=== PATIENT | female | born 1965 | race Caucasian/White ===

== ENCOUNTER 2016-05-29 09:23 | Day surgery (SDC) | payer OTHER ==
[~2016-05-29] VITALS: Ht 157.5 cm; Wt 112.4 kg
[~2016-05-29 09:23] MED LIST: BENLYSTA120 MG IV; COUMADIN3 MG PO; ERGOCALCIF50000 UNIT PO; HYDROXYCHLOROQ200 MG PO; LOVENOX100 MG/1 M SC; METFORMIN HCL500 MG PO; PLAQUENIL200 MG PO; SERTRALINE HCL50 MG PO; SYNTHROID137 MCG PO; TOPAMAX25 MG PO; ULTRAM50 MG PO; ZOFRAN ODT4 MG PO
[2016-05-29 10:03] VITALS: BP 119/58
[2016-05-29 10:30] LABS: POINT-OF-CARE METER ID UU14174212
[2016-05-29 10:35] LABS: PROTHROMBIN TIME 10.9 (9.2-11.2)
[2016-05-29 10:45] LABS: INTER. NORMALIZED RATIO 1.1
[2016-05-29 10:58] LABS: AMYLASE 19 IU/L (1-118); DIRECT BILIRUBIN 0.1 mg/dL (0.0-0.3); TOTAL BILIRUBIN 0.5 MG/DL (0.0-1.0)
[2016-05-29 11:04] LABS: ALKALINE PHOSPHATASE 53 IU/L (3-129); LIPASE 20 U/L (1.0-51.0)
[2016-05-29] MEDS ORDERED: DILAUDID2 MG PO (15:47)
[2016-05-29] MEDS ORDERED: COLACE100 MG PO (15:47)
[2016-05-29 17:45] VITALS: BP 128/63
[2016-05-29 18:45] VITALS: BP 129/64
[2016-05-29 20:45] VITALS: BP 128/61
== END 2016-05-29 21:11 | disposition home or self-care (01) ==
LOC: SDC 09:23
PROVIDERS: Surgery
PROC: 0FT44ZZ Resection of Gallbladder, Percutaneous Endoscopic Approach (ICD-10-PCS; principal; 2016-05-29)
DX: K80.10 Calculus of gallbladder with chronic cholecystitis without obstruction (principal); I10 Essential (primary) hypertension; E78.5 Hyperlipidemia, unspecified; R20.0 Anesthesia of skin; M35.00 Sjogren syndrome, unspecified; Z86.711 Personal history of pulmonary embolism; I34.1 Nonrheumatic mitral (valve) prolapse; I35.0 Nonrheumatic aortic (valve) stenosis; R73.01 Impaired fasting glucose
CPT/HCPCS: 80076; 82150; 82948; 83690; 85610; 88304; J0330; J0690; J1100; J1170; J1885; J2250; J2405; J2710; J2765; J3010

== ENCOUNTER 2017-03-26 10:48 | Day surgery (SDC) | payer BC ==
[~2017-03-26] VITALS: Ht 157.5 cm; Wt 111.1 kg
[~2017-03-26 10:48] MED LIST changes: +COLACE100 MG PO; +DILAUDID2 MG PO; +FLEXERIL10 MG PO; +GLUCOPHAGE XR,500 MG PO; -LOVENOX100 MG/1 M SC; +LOVENOX30 MG/0.3 SC; -METFORMIN HCL500 MG PO; +NEURONTIN300 MG PO; -SYNTHROID137 MCG PO; +SYNTHROID150 MCG PO
[2017-03-26 11:14] VITALS: BP 131/710
[2017-03-26 11:30] LABS: POINT-OF-CARE METER ID UU14174212
[2017-03-26 11:43] VITALS: BP 131/71
[2017-03-26 11:49] LABS: INTER. NORMALIZED RATIO 1.1; PROTHROMBIN TIME 12.8 SEC (10.2-12.9)
[2017-03-26 11:52] LABS: PTT 30.7 SEC (25-37)
[2017-03-26 17:30] VITALS: BP 129/58
[2017-03-26 18:50] VITALS: BP 109/55
[2017-03-26 20:50] VITALS: BP 129/70
== END 2017-03-26 21:00 | disposition home or self-care (01) ==
LOC: SDC 10:48
PROVIDERS: Neurological Surgery
DX: M51.16 Intervertebral disc disorders with radiculopathy, lumbar region (principal); M48.062 Spinal stenosis, lumbar region with neurogenic claudication; E66.01 Morbid (severe) obesity due to excess calories; Z68.41 Body mass index [BMI] 40.0-44.9, adult; E03.9 Hypothyroidism, unspecified; I34.1 Nonrheumatic mitral (valve) prolapse; R73.03 Prediabetes; Z79.84 Long term (current) use of oral hypoglycemic drugs; Z79.01 Long term (current) use of anticoagulants; Z88.8 Allergy status to other drugs, medicaments and biological substances
CPT/HCPCS: 72020; 76000; 82948; 85610; 85730; J0131; J0690; J1100; J1170; J1885; J2250; J2405; J2710; J2765; J3010; J3370; S0020

== ENCOUNTER 2017-08-19 20:41 | Inpatient (IN) | payer BC ==
[~2017-08-19] VITALS: Ht 157.5 cm; Wt 123.4 kg
[2017-08-19 23:27] LABS: BASOPHIL (%) 0.3 % (0-1); EOSINOPHIL (%) 1.3 % (0-5); EOSINOPHIL COUNT 0.1 K/uL (0-0.3); HEMATOCRIT 45.5 % (36.0-46.0); HEMOGLOBIN 14.8 G/DL (11.9-15.5); IMMATURE GRANULOCYTE (%) 0.5 % (0.0-0.7); LYMPHOCYTE (%) 19.9 % (15-42); LYMPHOCYTE COUNT 1.8 K/uL (1.0-2.8); MCH 28.5 PG (29.0-34.0); MCHC 32.5 G/DL (30.0-36.0); MCV 87.5 FL (83-99); MONOCYTE (%) 7.5 % (3-12); MONOCYTE COUNT 0.7 K/uL (0-0.8); NEUTROPHIL (%) 70.5 % (45-76); NEUTROPHIL COUNT 6.4 K/uL (1.8-6.4); PLATELET COUNT 252 K/uL (156-360); RBC DIS.WIDTH-CV 15.3 % (11.8-14.6); RBC DIS.WIDTH-SD 49.1 % (39-53); WHITE BLOOD COUNT 9.2 K/uL (4.1-10.2)
[2017-08-19 23:28] LABS: APPEARANCE CLEAR ((CLEAR)); BILIRUBIN NEGATIVE; BLOOD NEGATIVE; COLOR YELLOW ((YELLOW)); GLUCOSE (STRIP) NEGATIVE; KETONES NEGATIVE; LEUKOCYTES NEGATIVE; NITRITE NEGATIVE; PROTEIN (STRIP) NEGATIVE; SPECIFIC GRAVITY 1.018 (1.000-1.030); UCUL ADDED? NO; UROBILINOGEN 0.2 MG/DL (0.2-1.0)
[2017-08-19 23:36] LABS: CHLORIDE 103 mEq/L (99-109); POTASSIUM 4.6 mEq/L (3.7-5.4); SODIUM 144 mEq/L (136-147)
[2017-08-19 23:37] LABS: GLUCOSE 120 mg/dL (70-99)
[2017-08-19 23:41] LABS: CREATININE 0.9 mg/dL (0.6-1.3); GFR ESTIMATE (CALCULATED) > 59 mL/min/
[2017-08-19 23:42] LABS: UREA NITROGEN (BUN) 13 mg/dL (9-23)
[2017-08-19 23:44] LABS: CREATINE KINASE 51 IU/L (1-294)
[2017-08-20 00:42] LABS: ERTH.SED.RATE 30 MM/HR (0-30)
[2017-08-20 02:06] LABS: C-REACTIVE PROTEIN 32.4 MG/L (0-10)
[2017-08-20] MEDS ORDERED: COUMADIN4 MG PO ×2 (08:41→08:42)
[2017-08-20] MEDS ORDERED: TYLENOL WITH C1 EACH PO (08:43)
[2017-08-20] MEDS ORDERED: HYDROCHLOROTHIA50 MG PO (08:44)
[2017-08-20 08:54] VITALS: BP 128/65
[2017-08-20 10:23] LABS: INTER. NORMALIZED RATIO 3.9
[2017-08-20 11:55] VITALS: BP 120/63
[2017-08-20 19:41] VITALS: BP 102/58
[2017-08-20 23:46] VITALS: BP 119/69
[2017-08-21 04:15] VITALS: BP 118/63
[2017-08-21 06:43] LABS: INTER. NORMALIZED RATIO 3.8
[2017-08-21 07:31] VITALS: BP 122/62
[2017-08-21 14:43] LABS: HIGH-SENS C-REACTIVE PROTEIN 2.14 MG/DL (0.02-0.20)
[2017-08-21 15:31] VITALS: BP 115/68
[2017-08-21 16:29] VITALS: BP 121/76
[2017-08-21 17:29] VITALS: BP 125/65
[2017-08-21 19:37] LABS: INTER. NORMALIZED RATIO 2.7
[2017-08-21 21:09] VITALS: BP 110/56
[2017-08-22] VITALS (8 sets, daily range): BP systolic 104–161; BP diastolic 53–95
[2017-08-22 06:16] LABS: INTER. NORMALIZED RATIO 2.8
[2017-08-22 06:37] LABS: BASOPHIL (%) 0.1 % (0-1); EOSINOPHIL (%) 0.1 % (0-5); HEMATOCRIT 39.3 % (36.0-46.0); IMMATURE GRANULOCYTE (%) 0.7 % (0.0-0.7); LYMPHOCYTE (%) 7.4 % (15-42); MCHC 32.6 G/DL (30.0-36.0); MONOCYTE (%) 2.5 % (3-12); MONOCYTE COUNT 0.3 K/uL (0-0.8); NEUTROPHIL (%) 89.2 % (45-76); PLATELET COUNT 273 K/uL (156-360); RBC DIS.WIDTH-CV 15.5 % (11.8-14.6); RBC DIS.WIDTH-SD 48.9 % (39-53); RED BLOOD COUNT 4.57 M/uL (3.80-5.20); WHITE BLOOD COUNT 13.5 K/uL (4.1-10.2)
[2017-08-22 06:39] LABS: CHLORIDE 105 MEQ/L (99-109); CREATININE 0.7 MG/DL (0.6-1.3); GFR ESTIMATE (CALCULATED) > 59 mL/min/; GLUCOSE 152 mg/dL (70-99); POTASSIUM 3.9 MEQ/L (3.7-5.4); SODIUM 141 MEQ/L (136-147); UREA NITROGEN (BUN) 20 mg/dL (9-23)
[2017-08-22 06:41] LABS: HEMOGLOBIN 12.8 G/DL (11.9-15.5)
[2017-08-22 15:47] LABS: INTER. NORMALIZED RATIO 2.2
[2017-08-23] VITALS (8 sets, daily range): BP systolic 108–131; BP diastolic 56–72
[2017-08-23 06:58] LABS: BASOPHIL (%) 0.1 % (0-1); EOSINOPHIL (%) 0 % (0-5); HEMATOCRIT 39.6 % (36.0-46.0); HEMOGLOBIN 12.8 G/DL (11.9-15.5); IMMATURE GRANULOCYTE (%) 0.7 % (0.0-0.7); LYMPHOCYTE (%) 12.7 % (15-42); LYMPHOCYTE COUNT 1.2 K/uL (1.0-2.8); MCH 28.3 PG (29.0-34.0); MCHC 32.3 G/DL (30.0-36.0); MCV 87.6 FL (83-99); MONOCYTE (%) 4.1 % (3-12); MONOCYTE COUNT 0.4 K/uL (0-0.8); NEUTROPHIL (%) 82.4 % (45-76); NEUTROPHIL COUNT 7.9 K/uL (1.8-6.4); PLATELET COUNT 246 K/uL (156-360); RBC DIS.WIDTH-CV 15.9 % (11.8-14.6); RBC DIS.WIDTH-SD 50.8 % (39-53); RED BLOOD COUNT 4.52 M/uL (3.80-5.20); WHITE BLOOD COUNT 9.5 K/uL (4.1-10.2)
[2017-08-23 07:04] LABS: CHLORIDE 105 MEQ/L (99-109); CREATININE 0.9 MG/DL (0.6-1.3); GFR ESTIMATE (CALCULATED) > 59 mL/min/; GLUCOSE 147 mg/dL (70-99); POTASSIUM 4.5 MEQ/L (3.7-5.4); SODIUM 142 MEQ/L (136-147); UREA NITROGEN (BUN) 25 mg/dL (9-23)
[2017-08-23 14:41] LABS: INTER. NORMALIZED RATIO 1.8
[2017-08-24 04:08] VITALS: BP 119/64
[2017-08-24 06:49] LABS: BASOPHIL (%) 0.4 % (0-1); EOSINOPHIL (%) 0.1 % (0-5); HEMATOCRIT 42.2 % (36.0-46.0); HEMOGLOBIN 13.5 G/DL (11.9-15.5); IMMATURE GRANULOCYTE (%) 1.7 % (0.0-0.7); LYMPHOCYTE (%) 12.9 % (15-42); LYMPHOCYTE COUNT 1.1 K/uL (1.0-2.8); MCH 28.1 PG (29.0-34.0); MCV 87.7 FL (83-99); MONOCYTE COUNT 0.3 K/uL (0-0.8); NEUTROPHIL (%) 80.9 % (45-76); NEUTROPHIL COUNT 6.9 K/uL (1.8-6.4); PLATELET COUNT 254 K/uL (156-360); RBC DIS.WIDTH-CV 15.6 % (11.8-14.6); RBC DIS.WIDTH-SD 49.8 % (39-53); RED BLOOD COUNT 4.81 M/uL (3.80-5.20); WHITE BLOOD COUNT 8.5 K/uL (4.1-10.2)
[2017-08-24 06:51] LABS: INTER. NORMALIZED RATIO 1.6
[2017-08-24 07:27] LABS: CHLORIDE 105 MEQ/L (99-109); CREATININE 0.8 MG/DL (0.6-1.3); GFR ESTIMATE (CALCULATED) > 59 mL/min/; GLUCOSE 152 mg/dL (70-99); POTASSIUM 4.3 MEQ/L (3.7-5.4); SODIUM 143 MEQ/L (136-147); UREA NITROGEN (BUN) 24 mg/dL (9-23)
[2017-08-24 07:56] VITALS: BP 128/73
[2017-08-24 13:30] VITALS: BP 112/63
[2017-08-24 16:25] VITALS: BP 157/76
[2017-08-25 00:23] VITALS: BP 117/70
[2017-08-25 06:27] LABS: BASOPHIL (%) 0.4 % (0-1); EOSINOPHIL (%) 0.1 % (0-5); HEMATOCRIT 42.1 % (36.0-46.0); HEMOGLOBIN 13.7 G/DL (11.9-15.5); IMMATURE GRANULOCYTE (%) 2.1 % (0.0-0.7); LYMPHOCYTE (%) 12.9 % (15-42); LYMPHOCYTE COUNT 1.1 K/uL (1.0-2.8); MCH 28.3 PG (29.0-34.0); MCHC 32.5 G/DL (30.0-36.0); MONOCYTE (%) 3.7 % (3-12); MONOCYTE COUNT 0.3 K/uL (0-0.8); NEUTROPHIL (%) 80.8 % (45-76); NEUTROPHIL COUNT 6.8 K/uL (1.8-6.4); PLATELET COUNT 255 K/uL (156-360); RBC DIS.WIDTH-CV 15.5 % (11.8-14.6); RED BLOOD COUNT 4.84 M/uL (3.80-5.20); WHITE BLOOD COUNT 8.4 K/uL (4.1-10.2)
[2017-08-25 06:29] LABS: INTER. NORMALIZED RATIO 1.4
[2017-08-25 06:49] LABS: CHLORIDE 105 MEQ/L (99-109); CREATININE 0.8 MG/DL (0.6-1.3); GFR ESTIMATE (CALCULATED) > 59 mL/min/; GLUCOSE 153 mg/dL (70-99); POTASSIUM 4.6 MEQ/L (3.7-5.4); SODIUM 141 MEQ/L (136-147); UREA NITROGEN (BUN) 26 mg/dL (9-23)
[2017-08-25 08:28] VITALS: BP 137/73
[2017-08-25] MEDS ORDERED: FLEXERIL5 MG PO (13:03)
[2017-08-25] MEDS ORDERED: LOVENOX30 MG/0.3 SC (13:05)
[2017-08-25] MEDS ORDERED: KETOROLAC TROME10 MG PO (13:05)
[2017-08-25] MEDS ORDERED: DOCUSATE SODIU100 MG PO (13:06)
[2017-08-25] MEDS ORDERED: POLYETHYLENE GL17 GM PO (13:06)
[2017-08-25] MEDS ORDERED: MEDROL DOSEPAK4 MG PO (13:07)
[2017-08-25] MEDS ORDERED: TRAMADOL HCL50 MG PO (13:14)
[2017-08-25] MEDS ORDERED: FENTANYL1 EAC5 TD (13:14)
== END 2017-08-25 14:34 | disposition home health service (06) | DRG 92 ==
LOC: EME 20:41 → 5WEST 08-20 06:27 → EDOF 08-20 06:27 → ENRESERV 08-20 06:32 → 5WEST 08-20 08:47 → 2EAST 08-21 10:42 → ENRESERV 08-22 22:17 → 2EAST 08-23 00:18
PROVIDERS: Emergency Medicine; Internal Medicine; Physician Assistant; Student in an Organized Health Care Education/Training Program
PROC: 30233K1 Transfusion of Nonautologous Frozen Plasma into Peripheral Vein, Percutaneous Approach (ICD-10-PCS; principal; 2017-08-21)
PROC: 0J973ZX Drainage of Back Subcutaneous Tissue and Fascia, Percutaneous Approach, Diagnostic (ICD-10-PCS; 2017-08-24)
DX: G89.29 Other chronic pain (principal); M54.5 Low back pain; L76.34 Postprocedural seroma of skin and subcutaneous tissue following other procedure; Y83.8 Other surgical procedures as the cause of abnormal reaction of the patient, or of later complication, without mention of misadventure at the time of the procedure; G96.19 Other disorders of meninges, not elsewhere classified; E89.0 Postprocedural hypothyroidism; E11.9 Type 2 diabetes mellitus without complications; G40.909 Epilepsy, unspecified, not intractable, without status epilepticus; M32.9 Systemic lupus erythematosus, unspecified; I42.1 Obstructive hypertrophic cardiomyopathy; M35.00 Sjogren syndrome, unspecified; R79.1 Abnormal coagulation profile; Z98.1 Arthrodesis status; Z95.1 Presence of aortocoronary bypass graft; Z79.01 Long term (current) use of anticoagulants; Z79.84 Long term (current) use of oral hypoglycemic drugs; Z85.850 Personal history of malignant neoplasm of thyroid; Z86.711 Personal history of pulmonary embolism; Z86.718 Personal history of other venous thrombosis and embolism
CPT/HCPCS: 49406; 72158; 80048; 81003; 82550; 82948; 83605; 85025; 85610; 85651; 86140; 86141; 86850; 86900; 86901; 87040; 87070; 87075; 87205; 99281; 99284; G0378; G8978 GP CJ; G8979 GP CH; J1100; J1652; J1815; J1885; J2060; J2930; J7509; P9017